=== PATIENT | male | born 1970 | race Caucasian/White ===

== ENCOUNTER 2020-06-15 01:21 | Inpatient (IN) ==
[2020-06-15] MEDS ORDERED: MORPHINE 4 MG/1 ML VIAL IV STA (01:34)
[2020-06-15] MEDS ORDERED: HEPARIN 5,000 UNIT/1 ML VIAL IV ONE (01:34)
[2020-06-15] MEDS ORDERED: ONDANSETRON 4 MG/2 ML VIAL IV STA (01:34)
[2020-06-15] MEDS ORDERED: ASPIRIN 325 MG TABLET PO STA (01:34)
[2020-06-15] MEDS ORDERED: DILTIAZEM 50 MG/10 ML VIAL IV STA (01:34)
[2020-06-15] MEDS ORDERED: NITROGLYCERIN 2% OINT 1 INCH/GM PACK TOP STA (01:34)
[2020-06-15] MEDS ORDERED: NITROGLYCERIN 2% OINT 1 INCH/GM PACK TOP ONE (01:35)
[2020-06-15] MEDS ORDERED: ONDANSETRON 4 MG/2 ML VIAL ONE (01:35)
[2020-06-15] MEDS ORDERED: ASPIRIN 325 MG TABLET ONE (01:36)
[2020-06-15] MEDS ORDERED: MORPHINE 4 MG/1 ML VIAL ONE (01:36)
[2020-06-15] MEDS ORDERED: HEPARIN 5,000 UNIT/1 ML VIAL ONE (01:36)
[2020-06-15 01:58] LABS: Basophils # 0.1 10*3/uL (0.0-0.2); Basophils % 0.8 % (0.0-0.8); Eosinophils # 0.2 10*3/uL (0.0-0.87); Eosinophils % 1.7 % (0.00-10.9); Hematocrit 46.7 VOL% (42.0-52.0); Hemoglobin 14.4 GM/DL (14.0-18.0); Immature Granulocytes % 0.7 %; Immature Granulocytes Absolute 0.09 #; Lymphocytes # 2.6 10*3/uL (1.4-4.0); Lymphocytes % 20.9 % (21.2-54.2); Mean Corpuscular HGB Conc 30.8 GM/DL (32-36); Mean Corpuscular Volume 94.5 FL (87-102); Mean Platelet Volume 9.8 FL (9.6-12.0); Monocytes % 7.5 % (1.7-12.7); Neutrophils % 68.4 % (38.7-73.9); Platelet Count 369 T/CUMM (130-400); Red Blood Count 4.94 MC/CUMM (3.8-5.5); Red Cell Distribution Width 17.4 % (9.3-17.3); White Blood Count 12.5 T/CUMM (4-12)
[2020-06-15] MEDS ORDERED: dilTIAZem Drip 125 MG/125 ML PREMIX IV SCH (02:00)
[2020-06-15] MEDS ORDERED: LIDOCAINE 1%/EPI INJ 20 ML VIAL ONE (02:01)
[2020-06-15] MEDS ORDERED: HEPARIN/NACL 0.9% 2 UNITS/ML 1,000 ML IV ONE (02:01)
[2020-06-15 02:11] LABS: PT Patient Result 11.1 SECS (9.8-11.9)
[2020-06-15] MEDS ORDERED: MORPHINE 10 MG/1 ML VIAL ONE (02:11)
[2020-06-15 02:17] LABS: Albumin 3.4 G/DL (3.4-5.0); Bilirubin,Total 1.1 MG/DL (0.2-1.0); Calcium 8.5 MG/DL (8.5-10.1); Osmolality,Calculated 274.8 MOS/KG (273-304); Total Protein 7.6 G/DL (6.4-8.3)
[2020-06-15] MEDS ORDERED: TIROFIBAN 5,000 MCG/100 ML PREMIX IV ONE (02:29)
[2020-06-15] MEDS ORDERED: TICAGRELOR 90 MG TABLET ONE (02:41)
[2020-06-15] MEDS ORDERED: FUROSEMIDE 40 MG/4 ML VIAL IV STA (03:20)
[2020-06-15] MEDS ORDERED: SODIUM CHLORIDE 0.45% 1,000 ML IV SCH (03:30)
[2020-06-15] MEDS: FUROSEMIDE 40 MG/4 ML VIAL IV SCH ×2 (04:23→08:20)
[2020-06-15 05:07] LABS: CKMB % 12.9 %; Osmolality,Calculated 276.7 MOS/KG (273-304); Risk Ratio 3.02; VLDL CHOLESTEROL 15.2 MG/DL
[2020-06-15 05:14] LABS: Troponin I 43.8 NG/ML (0.00-0.045)
[2020-06-15] MEDS ORDERED: DILTIAZEM 25 MG/5 ML VIAL IV ONE (05:22)
[2020-06-15] MEDS: carvediloL 6.25 MG TABLET PO SCH ×3 (05:40→17:22)
[2020-06-15] MEDS: LEVOTHYROXINE 100 MCG TABLET PO SCH (05:40)
[2020-06-15] MEDS: SACUBITRIL/VALSARTAN 49-51 MG TABLET PO SCH ×3 (05:41→20:38)
[2020-06-15] MEDS: HYDROmorphone 2 MG/1 ML VIAL IV PRN (07:15)
[2020-06-15] MEDS: dilTIAZem Drip 125 MG/125 ML PREMIX IV SCH (07:23)
[2020-06-15] MEDS ORDERED: FUROSEMIDE 40 MG/4 ML VIAL IV SCH ×2 (08:00→09:00)
[2020-06-15] MEDS: TICAGRELOR 90 MG TABLET PO SCH ×2 (08:20→20:37)
[2020-06-15] MEDS: APIXABAN 5 MG TABLET PO SCH ×2 (08:20→20:37)
[2020-06-15] MEDS: PANTOPRAZOLE 40 MG TABLET PO SCH (08:20)
[2020-06-15] MEDS ORDERED: LOSARTAN 25 MG TABLET PO SCH (09:00)
[2020-06-15] MEDS: CLORAZEPATE 3.75 MG TABLET PO PRN (17:29)
[2020-06-15] MEDS ORDERED: LORazepam 2 MG/1 ML VIAL IV ONE (20:10)
[2020-06-15] MEDS ORDERED: ZIPRASIDONE 20 MG/1 ML VIAL IM PRN (20:34)
[2020-06-15] MEDS ORDERED: SODIUM CHLORIDE 0.9% 250 ML IV ONE (20:37)
[2020-06-15] MEDS: SERTRALINE 25 MG TABLET PO SCH (20:37)
[2020-06-15] MEDS: ATORVASTATIN 80 MG TABLET PO SCH (20:37)
[2020-06-15 21:29] LABS: Thyroid Stimulating Hormone 1.5 uIU/ml (0.358-3.74)
[2020-06-16] MEDS: HYDROmorphone 2 MG/1 ML VIAL IV PRN ×3 (00:21→21:31)
[2020-06-16] MEDS: dilTIAZem Drip 125 MG/125 ML PREMIX IV SCH (05:35)
[2020-06-16] MEDS: LEVOTHYROXINE 100 MCG TABLET PO SCH (06:17)
[2020-06-16] MEDS: DOBUTamine 500 MG/250 ML PREMIX IV SCH ×2 (07:44→22:33)
[2020-06-16 08:00] LABS: Basophils # 0.1 10*3/uL (0.0-0.2); Basophils % 0.6 % (0.0-0.8); Eosinophils # 0.2 10*3/uL (0.0-0.87); Eosinophils % 1.9 % (0.00-10.9); Hematocrit 46.1 VOL% (42.0-52.0); Hemoglobin 14.5 GM/DL (14.0-18.0); Immature Granulocytes % 0.5 %; Immature Granulocytes Absolute 0.06 #; Lymphocytes # 2.6 10*3/uL (1.4-4.0); Mean Corpuscular HGB Conc 31.5 GM/DL (32-36); Mean Corpuscular Volume 93.5 FL (87-102); Mean Platelet Volume 9.5 FL (9.6-12.0); Monocytes % 11.4 % (1.7-12.7); Neutrophils % 61.6 % (38.7-73.9); Platelet Count 355 T/CUMM (130-400); Red Blood Count 4.93 MC/CUMM (3.8-5.5); Red Cell Distribution Width 16.9 % (9.3-17.3); White Blood Count 10.9 T/CUMM (4-12)
[2020-06-16 08:11] LABS: Calcium 7.6 MG/DL (8.5-10.1); Osmolality,Calculated 269.2 MOS/KG (273-304)
[2020-06-16] MEDS: PANTOPRAZOLE 40 MG TABLET PO SCH (09:25)
[2020-06-16] MEDS: TICAGRELOR 90 MG TABLET PO SCH ×2 (09:25→21:25)
[2020-06-16] MEDS: carvediloL 6.25 MG TABLET PO SCH ×2 (09:25→16:13)
[2020-06-16] MEDS: SACUBITRIL/VALSARTAN 49-51 MG TABLET PO SCH ×2 (09:25→21:25)
[2020-06-16] MEDS: APIXABAN 5 MG TABLET PO SCH ×2 (09:25→21:25)
[2020-06-16] MEDS: CLORAZEPATE 3.75 MG TABLET PO PRN (12:39)
[2020-06-16] MEDS: FUROSEMIDE 40 MG/4 ML VIAL IV SCH (15:52)
[2020-06-16] MEDS: ATORVASTATIN 80 MG TABLET PO SCH (21:26)
[2020-06-16] MEDS: SERTRALINE 25 MG TABLET PO SCH (21:26)
[2020-06-17 03:31] LABS: Basophils # 0.1 10*3/uL (0.0-0.2); Basophils % 0.6 % (0.0-0.8); Eosinophils # 0.3 10*3/uL (0.0-0.87); Eosinophils % 2.9 % (0.00-10.9); Hematocrit 43.5 VOL% (42.0-52.0); Hemoglobin 14.1 GM/DL (14.0-18.0); Immature Granulocytes % 0.5 %; Immature Granulocytes Absolute 0.05 #; Lymphocytes # 2.3 10*3/uL (1.4-4.0); Lymphocytes % 23.5 % (21.2-54.2); Mean Corpuscular HGB Conc 32.4 GM/DL (32-36); Mean Corpuscular Volume 90.8 FL (87-102); Mean Platelet Volume 9.4 FL (9.6-12.0); Monocytes % 9.3 % (1.7-12.7); Neutrophils % 63.2 % (38.7-73.9); Platelet Count 326 T/CUMM (130-400); Red Blood Count 4.79 MC/CUMM (3.8-5.5); Red Cell Distribution Width 16.4 % (9.3-17.3); White Blood Count 9.6 T/CUMM (4-12)
[2020-06-17 03:56] LABS: Calcium 7.6 MG/DL (8.5-10.1); Osmolality,Calculated 266.4 MOS/KG (273-304)
[2020-06-17] MEDS: HYDROmorphone 2 MG/1 ML VIAL IV PRN ×2 (05:40→17:40)
[2020-06-17] MEDS: LEVOTHYROXINE 100 MCG TABLET PO SCH (05:54)
[2020-06-17] MEDS: dilTIAZem Drip 125 MG/125 ML PREMIX IV SCH (07:11)
[2020-06-17] MEDS: carvediloL 6.25 MG TABLET PO SCH ×3 (08:53→23:38)
[2020-06-17] MEDS: FUROSEMIDE 40 MG/4 ML VIAL IV SCH ×2 (08:53→16:39)
[2020-06-17] MEDS: APIXABAN 5 MG TABLET PO SCH ×2 (08:54→20:10)
[2020-06-17] MEDS: PANTOPRAZOLE 40 MG TABLET PO SCH (08:54)
[2020-06-17] MEDS: SACUBITRIL/VALSARTAN 49-51 MG TABLET PO SCH ×2 (08:54→20:13)
[2020-06-17] MEDS: TICAGRELOR 90 MG TABLET PO SCH ×2 (08:54→20:09)
[2020-06-17] MEDS: CLORAZEPATE 3.75 MG TABLET PO PRN ×2 (13:33→20:10)
[2020-06-17] MEDS: DOBUTamine 500 MG/250 ML PREMIX IV SCH ×2 (14:02→15:32)
[2020-06-17] MEDS: SERTRALINE 25 MG TABLET PO SCH (20:09)
[2020-06-17] MEDS: ATORVASTATIN 80 MG TABLET PO SCH (20:09)
[2020-06-18 05:24] LABS: Basophils # 0.1 10*3/uL (0.0-0.2); Basophils % 0.6 % (0.0-0.8); Eosinophils # 0.2 10*3/uL (0.0-0.87); Eosinophils % 2.5 % (0.00-10.9); Hematocrit 43.9 VOL% (42.0-52.0); Hemoglobin 14.3 GM/DL (14.0-18.0); Immature Granulocytes % 0.5 %; Immature Granulocytes Absolute 0.05 #; Lymphocytes % 21.9 % (21.2-54.2); Mean Corpuscular HGB Conc 32.6 GM/DL (32-36); Mean Corpuscular Volume 88.3 FL (87-102); Mean Platelet Volume 9.3 FL (9.6-12.0); Monocytes % 11.1 % (1.7-12.7); Neutrophils % 63.4 % (38.7-73.9); Platelet Count 339 T/CUMM (130-400); Red Blood Count 4.97 MC/CUMM (3.8-5.5); Red Cell Distribution Width 16.4 % (9.3-17.3); White Blood Count 9.2 T/CUMM (4-12)
[2020-06-18 06:03] LABS: Albumin 2.2 G/DL (3.4-5.0); Bilirubin,Total 1.6 MG/DL (0.2-1.0); Calcium 7.8 MG/DL (8.5-10.1); Osmolality,Calculated 266.2 MOS/KG (273-304); Total Protein 5.8 G/DL (6.4-8.3)
[2020-06-18] MEDS: DOBUTamine 500 MG/250 ML PREMIX IV SCH ×2 (06:49→22:55)
[2020-06-18] MEDS: dilTIAZem Drip 125 MG/125 ML PREMIX IV SCH (06:49)
[2020-06-18] MEDS: LEVOTHYROXINE 100 MCG TABLET PO SCH (07:01)
[2020-06-18] MEDS: carvediloL 6.25 MG TABLET PO SCH ×3 (07:01→17:00)
[2020-06-18] MEDS: FUROSEMIDE 40 MG/4 ML VIAL IV SCH ×2 (10:17→16:32)
[2020-06-18] MEDS: TICAGRELOR 90 MG TABLET PO SCH ×2 (10:18→20:24)
[2020-06-18] MEDS: APIXABAN 5 MG TABLET PO SCH ×2 (10:18→20:24)
[2020-06-18] MEDS: PANTOPRAZOLE 40 MG TABLET PO SCH (10:20)
[2020-06-18] MEDS: SACUBITRIL/VALSARTAN 49-51 MG TABLET PO SCH ×2 (10:22→20:25)
[2020-06-18] MEDS: GABAPENTIN 100 MG CAPSULE PO SCH ×3 (14:11→20:24)
[2020-06-18] MEDS: ATORVASTATIN 80 MG TABLET PO SCH (20:24)
[2020-06-18] MEDS: SERTRALINE 25 MG TABLET PO SCH (20:24)
[2020-06-19] MEDS: carvediloL 6.25 MG TABLET PO SCH ×5 (00:10→23:40)
[2020-06-19 04:13] LABS: Basophils # 0.1 10*3/uL (0.0-0.2); Basophils % 0.8 % (0.0-0.8); Eosinophils # 0.3 10*3/uL (0.0-0.87); Hematocrit 46.1 VOL% (42.0-52.0); Hemoglobin 14.7 GM/DL (14.0-18.0); Immature Granulocytes % 0.6 %; Immature Granulocytes Absolute 0.05 #; Lymphocytes # 2.5 10*3/uL (1.4-4.0); Lymphocytes % 27.2 % (21.2-54.2); Mean Corpuscular HGB Conc 31.9 GM/DL (32-36); Mean Corpuscular Volume 91.8 FL (87-102); Mean Platelet Volume 8.9 FL (9.6-12.0); Monocytes % 11.9 % (1.7-12.7); Neutrophils % 56.5 % (38.7-73.9); Platelet Count 381 T/CUMM (130-400); Red Blood Count 5.02 MC/CUMM (3.8-5.5); Red Cell Distribution Width 16.8 % (9.3-17.3); White Blood Count 9.1 T/CUMM (4-12)
[2020-06-19] MEDS: dilTIAZem Drip 125 MG/125 ML PREMIX IV SCH (05:26)
[2020-06-19] MEDS: LEVOTHYROXINE 100 MCG TABLET PO SCH (06:10)
[2020-06-19 08:01] LABS: Calcium 8.2 MG/DL (8.5-10.1); Osmolality,Calculated 266.4 MOS/KG (273-304)
[2020-06-19] MEDS: FUROSEMIDE 40 MG/4 ML VIAL IV SCH ×2 (08:50→15:38)
[2020-06-19] MEDS: SACUBITRIL/VALSARTAN 49-51 MG TABLET PO SCH ×3 (08:51→21:08)
[2020-06-19] MEDS: PANTOPRAZOLE 40 MG TABLET PO SCH (08:51)
[2020-06-19] MEDS: APIXABAN 5 MG TABLET PO SCH ×2 (08:51→21:00)
[2020-06-19] MEDS: TICAGRELOR 90 MG TABLET PO SCH ×2 (08:51→21:00)
[2020-06-19] MEDS: GABAPENTIN 100 MG CAPSULE PO SCH ×3 (08:51→21:00)
[2020-06-19] MEDS ORDERED: DOBUTamine 500 MG/250 ML PREMIX IV SCH ×2 (15:21→19:00)
[2020-06-19] MEDS: DOBUTamine 500 MG/250 ML PREMIX IV SCH (15:27)
[2020-06-19] MEDS: SERTRALINE 25 MG TABLET PO SCH (21:00)
[2020-06-19] MEDS: ATORVASTATIN 80 MG TABLET PO SCH (21:01)
[2020-06-20 04:17] LABS: Basophils # 0.1 10*3/uL (0.0-0.2); Eosinophils # 0.3 10*3/uL (0.0-0.87); Eosinophils % 4.1 % (0.00-10.9); Hematocrit 42.5 VOL% (42.0-52.0); Hemoglobin 13.9 GM/DL (14.0-18.0); Immature Granulocytes % 0.8 %; Immature Granulocytes Absolute 0.06 #; Lymphocytes # 2.3 10*3/uL (1.4-4.0); Mean Corpuscular HGB Conc 32.7 GM/DL (32-36); Mean Corpuscular Volume 88.5 FL (87-102); Mean Platelet Volume 8.9 FL (9.6-12.0); Monocytes % 11.6 % (1.7-12.7); Neutrophils % 53.5 % (38.7-73.9); Platelet Count 367 T/CUMM (130-400); Red Cell Distribution Width 16.3 % (9.3-17.3); White Blood Count 7.9 T/CUMM (4-12)
[2020-06-20] MEDS: dilTIAZem Drip 125 MG/125 ML PREMIX IV SCH (05:02)
[2020-06-20 05:16] LABS: Calcium 8.1 MG/DL (8.5-10.1); Osmolality,Calculated 267.4 MOS/KG (273-304)
[2020-06-20] MEDS: LEVOTHYROXINE 100 MCG TABLET PO SCH (06:05)
[2020-06-20] MEDS: carvediloL 6.25 MG TABLET PO SCH ×2 (06:05→15:51)
[2020-06-20] MEDS ORDERED: POTASSIUM CHLORIDE 20 MEQ TABLET PO ONE (09:06)
[2020-06-20] MEDS: TICAGRELOR 90 MG TABLET PO SCH ×2 (09:30→20:58)
[2020-06-20] MEDS: GABAPENTIN 100 MG CAPSULE PO SCH ×3 (09:30→20:58)
[2020-06-20] MEDS: APIXABAN 5 MG TABLET PO SCH ×2 (09:30→20:58)
[2020-06-20] MEDS: PANTOPRAZOLE 40 MG TABLET PO SCH (09:30)
[2020-06-20] MEDS: FUROSEMIDE 40 MG TABLET PO SCH (09:31)
[2020-06-20] MEDS: SACUBITRIL/VALSARTAN 49-51 MG TABLET PO SCH ×2 (09:31→20:58)
[2020-06-20] MEDS: SPIRONOLACTONE 25 MG TABLET PO SCH (09:31)
[2020-06-20] MEDS: METOPROLOL TARTRATE 5 MG/5 ML VIAL IV SCH (20:41)
[2020-06-20] MEDS: ATORVASTATIN 80 MG TABLET PO SCH (20:58)
[2020-06-20] MEDS: SERTRALINE 25 MG TABLET PO SCH (20:59)
[2020-06-20] MEDS ORDERED: carvediloL 3.125 MG TABLET PO SCH (21:00)
[2020-06-21 05:47] LABS: Basophils # 0.1 10*3/uL (0.0-0.2); Basophils % 0.5 % (0.0-0.8); Eosinophils # 0.3 10*3/uL (0.0-0.87); Eosinophils % 3.2 % (0.00-10.9); Immature Granulocytes % 0.7 %; Immature Granulocytes Absolute 0.06 #; Lymphocytes # 1.8 10*3/uL (1.4-4.0); Mean Corpuscular HGB Conc 31.7 GM/DL (32-36); Mean Corpuscular Volume 91.9 FL (87-102); Mean Platelet Volume 9.4 FL (9.6-12.0); Monocytes % 8.4 % (1.7-12.7); Neutrophils % 67.2 % (38.7-73.9); Platelet Count 359 T/CUMM (130-400); Red Blood Count 4.46 MC/CUMM (3.8-5.5); Red Cell Distribution Width 16.2 % (9.3-17.3); White Blood Count 9.1 T/CUMM (4-12)
[2020-06-21 06:03] LABS: Calcium 8.1 MG/DL (8.5-10.1); Osmolality,Calculated 271.1 MOS/KG (273-304)
[2020-06-21] MEDS: LEVOTHYROXINE 100 MCG TABLET PO SCH (06:16)
[2020-06-21] MEDS: APIXABAN 5 MG TABLET PO SCH ×2 (08:28→21:12)
[2020-06-21] MEDS: carvediloL 6.25 MG TABLET PO SCH ×2 (08:28→21:12)
[2020-06-21] MEDS: GABAPENTIN 100 MG CAPSULE PO SCH ×3 (08:28→21:11)
[2020-06-21] MEDS: SPIRONOLACTONE 25 MG TABLET PO SCH (08:28)
[2020-06-21] MEDS: PANTOPRAZOLE 40 MG TABLET PO SCH (08:29)
[2020-06-21] MEDS: TICAGRELOR 90 MG TABLET PO SCH ×2 (08:29→21:12)
[2020-06-21] MEDS: FUROSEMIDE 40 MG TABLET PO SCH (08:29)
[2020-06-21] MEDS: METOPROLOL TARTRATE 5 MG/5 ML VIAL IV SCH ×2 (08:30→08:31)
[2020-06-21] MEDS ORDERED: LOSARTAN 25 MG TABLET PO SCH (21:00)
[2020-06-21] MEDS: SERTRALINE 25 MG TABLET PO SCH (21:11)
[2020-06-21] MEDS: ATORVASTATIN 80 MG TABLET PO SCH (21:13)
[2020-06-22 05:06] LABS: Basophils # 0.1 10*3/uL (0.0-0.2); Basophils % 0.6 % (0.0-0.8); Eosinophils # 0.3 10*3/uL (0.0-0.87); Eosinophils % 3.1 % (0.00-10.9); Hematocrit 39.9 VOL% (42.0-52.0); Immature Granulocytes % 0.4 %; Immature Granulocytes Absolute 0.04 #; Lymphocytes # 2.1 10*3/uL (1.4-4.0); Mean Corpuscular HGB Conc 32.6 GM/DL (32-36); Mean Corpuscular Volume 89.1 FL (87-102); Mean Platelet Volume 9.1 FL (9.6-12.0); Monocytes % 8.2 % (1.7-12.7); Neutrophils % 66.7 % (38.7-73.9); Platelet Count 368 T/CUMM (130-400); Red Blood Count 4.48 MC/CUMM (3.8-5.5); Red Cell Distribution Width 15.9 % (9.3-17.3)
[2020-06-22 05:13] LABS: Calcium 8.4 MG/DL (8.5-10.1); Osmolality,Calculated 269.2 MOS/KG (273-304)
[2020-06-22] MEDS: LEVOTHYROXINE 100 MCG TABLET PO SCH (06:00)
[2020-06-22 08:20] VITALS: BP 98/70
[2020-06-22] MEDS: TICAGRELOR 90 MG TABLET PO SCH (08:31)
[2020-06-22] MEDS: APIXABAN 5 MG TABLET PO SCH (08:31)
[2020-06-22] MEDS: FUROSEMIDE 40 MG TABLET PO SCH (08:31)
[2020-06-22] MEDS: carvediloL 6.25 MG TABLET PO SCH (08:31)
[2020-06-22] MEDS: GABAPENTIN 100 MG CAPSULE PO SCH (08:32)
[2020-06-22] MEDS: PANTOPRAZOLE 40 MG TABLET PO SCH (08:32)
[2020-06-22] MEDS: SPIRONOLACTONE 25 MG TABLET PO SCH (08:32)
== END 2020-06-22 11:02 | disposition home or self-care (01) | DRG 250 ==
LOC: N.ED 01:21 → N.ICU 02:00 → N.EDINP 02:48 → N.ICU 03:23 → N.TELES 06-20 16:21
PROVIDERS: ADMIT Internal Medicine Interventional Cardiology; ATTEND Internal Medicine Interventional Cardiology
PROC: CLCCHCL (ICD-10-PCS; 2020-06-15 02:15)

== ENCOUNTER 2020-06-29 12:29 | Inpatient (IN) ==
[2020-06-29] MEDS ORDERED: SODIUM CHLORIDE 0.9% 500 ML IV STA (13:07)
[2020-06-29 13:18] LABS: Basophils # 0.1 10*3/uL (0.0-0.2); Basophils % 1.2 % (0.0-0.8); Eosinophils # 0.3 10*3/uL (0.0-0.87); Eosinophils % 2.8 % (0.00-10.9); Hematocrit 43.8 VOL% (42.0-52.0); Hgb & Hct Comparison OK; Immature Granulocytes % 0.9 %; Immature Granulocytes Absolute 0.08 #; Lymphocytes # 1.9 10*3/uL (1.4-4.0); Lymphocytes % 20.3 % (21.2-54.2); Mean Corpuscular Hemoglobin 29 PG (27-34); Monocytes # 0.7 10*3/uL (0.11-0.8); Monocytes % 7.3 % (1.7-12.7); Neutrophils # 6.3 10*3/uL (1.4-7.4); Neutrophils % 67.5 % (38.7-73.9); Platelet Count 444 T/CUMM (130-400)
[2020-06-29 13:25] LABS: INR 1.3; PT Patient Result 13.4 SECS (9.8-11.9)
[2020-06-29 13:40] LABS: Albumin/Globulin Ratio 0.8 RATIO (1.1-2.2); Bilirubin,Total 0.7 MG/DL (0.2-1.0)
[2020-06-29] MEDS ORDERED: MAGNESIUM SULF RIDER 4 GM in PREMIX 1 EACH IV PRN (13:54)
[2020-06-29] MEDS ORDERED: MAGNESIUM SULF RIDER 2 GM in PREMIX 1 EACH IV PRN (13:54)
[2020-06-29] MEDS ORDERED: SODIUM CHLORIDE 0.9% 1,000 ML IV SCH (14:00)
[2020-06-29] MEDS ORDERED: ALBUTEROL 2.5 MG/3 ML NEB RESP TX PRN (14:47)
[2020-06-29] MEDS ORDERED: ACETAMINOPHEN 325 MG TABLET PO PRN (14:51)
[2020-06-29] MEDS ORDERED: SIMETHICONE CHEW 125 MG TABLET PO PRN (14:51)
[2020-06-29] MEDS ORDERED: PROMETHAZINE 25 MG TABLET PO PRN (14:51)
[2020-06-29] MEDS ORDERED: ALUMINUM/MAGNES/SIMETH MAX STR 30 ML UDCUP PO PRN (14:51)
[2020-06-29] MEDS ORDERED: diphenhydrAMINE CAP 25 MG CAPSULE PO PRN (14:51)
[2020-06-29] MEDS ORDERED: ONDANSETRON 4 MG/2 ML VIAL IV PRN (14:51)
[2020-06-29] MEDS ORDERED: guaiFENesin/DM ER 600-30 MG TABLET PO PRN (14:51)
[2020-06-29] MEDS ORDERED: SODIUM CHLORIDE 0.9% 250 ML IV ONE (15:06)
[2020-06-29 16:18] LABS: Hepatitis A Ab IgM Quant 0.19 Index; Hepatitis A Ab IgM Result Negative (Negative); Hepatitis B Core IgM Quant 0.15 Index; Hepatitis B Core IgM Result Negative (Negative); Hepatitis B Surface Ag Quant < 0.10 Index; Hepatitis B Surface Ag Result Negative (Negative); Hepatitis C Virus Ab Quant 0.06 Index; Hepatitis C Virus Ab Result Negative (Negative)
[2020-06-29] MEDS ORDERED: carvediloL 3.125 MG TABLET PO SCH (21:00)
[2020-06-29] MEDS ORDERED: carvediloL 6.25 MG TABLET PO SCH (21:00)
[2020-06-29] MEDS: METOPROLOL SUCCINATE XL 25 MG TABLET PO SCH (21:30)
[2020-06-29] MEDS: ZALEPLON 5 MG CAPSULE PO PRN (21:30)
[2020-06-29] MEDS: SERTRALINE 25 MG TABLET PO SCH (21:31)
[2020-06-29] MEDS: TICAGRELOR 90 MG TABLET PO SCH (21:31)
[2020-06-29] MEDS: ATORVASTATIN 80 MG TABLET PO SCH (21:31)
[2020-06-29] MEDS: APIXABAN 5 MG TABLET PO SCH (21:31)
[2020-06-29] MEDS: DOCUSATE SODIUM 100 MG CAPSULE PO SCH (21:32)
[2020-06-30 01:08] LABS: Barbiturates Screen,Urine Negative (Negative); Cannabinoid Screen,Urine Negative (Negative); Phencyclidine Screen,Urine Negative (Negative); Was Specimen Discarded? Yes
[2020-06-30 05:49] LABS: Basophils # 0.1 10*3/uL (0.0-0.2); Eosinophils # 0.3 10*3/uL (0.0-0.87); Eosinophils % 2.6 % (0.00-10.9); Hematocrit 41.1 VOL% (42.0-52.0); Hemoglobin 12.7 GM/DL (14.0-18.0); Hgb & Hct Comparison OK; Immature Granulocytes % 1.1 %; Immature Granulocytes Absolute 0.11 #; Lymphocytes # 3.6 10*3/uL (1.4-4.0); Lymphocytes % 35.7 % (21.2-54.2); Mean Corpuscular HGB Conc 30.9 GM/DL (32-36); Mean Corpuscular Hemoglobin 29 PG (27-34); Mean Corpuscular Volume 93.4 FL (87-102); Monocytes # 0.7 10*3/uL (0.11-0.8); Monocytes % 7.3 % (1.7-12.7); Neutrophils # 5.3 10*3/uL (1.4-7.4); Neutrophils % 52.3 % (38.7-73.9); Platelet Count 397 T/CUMM (130-400)
[2020-06-30 06:20] LABS: Alanine Aminotransferase 77 U/L (16-61); Alkaline Phosphatase 211 U/L (45-117); Aspartate Amino Transferase 50 U/L (0-37); Bilirubin,Direct < 0.100 MG/DL (0.0-0.20); Bilirubin,Indirect 0.9 MG/DL (0.0-1.0)
[2020-06-30 06:30] LABS: Blood Urea Nitrogen 23 MG/DL (7-18); Carbon Dioxide 24 MMOL/L (21-32); Chloride 105 MMOL/L (98-107); Creatine Kinase MB 2.2 NG/ML (0.5-3.6); Estimated Glom Filtration Rate 74 ML/MIN; Magnesium 2.1 MG/DL (1.8-2.4); Osmolality,Calculated 272.1 MOS/KG (273-304); Sodium 135 MMOL/L (136-145)
[2020-06-30 06:32] LABS: Troponin I 0.085 NG/ML (0.00-0.045)
[2020-06-30] MEDS ORDERED: FUROSEMIDE 40 MG TABLET PO SCH (09:00)
[2020-06-30] MEDS: METOPROLOL SUCCINATE XL 25 MG TABLET PO SCH (10:04)
[2020-06-30] MEDS: TICAGRELOR 90 MG TABLET PO SCH ×2 (10:04→22:05)
[2020-06-30] MEDS: APIXABAN 5 MG TABLET PO SCH ×2 (10:04→22:05)
[2020-06-30] MEDS: DOCUSATE SODIUM 100 MG CAPSULE PO SCH ×2 (10:05→22:06)
[2020-06-30] MEDS: LEVOTHYROXINE 100 MCG TABLET PO SCH (10:05)
[2020-06-30] MEDS ORDERED: LOSARTAN 25 MG TABLET PO SCH (12:46)
[2020-06-30] MEDS ORDERED: NITROGLYCERIN SL 0.4 MG TABLET SL ONE (16:32)
[2020-06-30 17:05] LABS: Creatine Kinase MB 2.4 NG/ML (0.5-3.6); Troponin I 0.065 NG/ML (0.00-0.045)
[2020-06-30] MEDS: SERTRALINE 25 MG TABLET PO SCH (22:05)
[2020-06-30] MEDS: ATORVASTATIN 80 MG TABLET PO SCH (22:06)
[2020-06-30] MEDS: ZALEPLON 5 MG CAPSULE PO PRN (22:25)
[2020-07-01] MEDS: NITROGLYCERIN SL 0.4 MG TABLET SL PRN (07:08)
[2020-07-01] MEDS ORDERED: ISOSORBIDE MONONITRATE 30 MG TABLET PO SCH ×2 (09:00→17:54)
[2020-07-01] MEDS: APIXABAN 5 MG TABLET PO SCH (09:44)
[2020-07-01] MEDS: METOPROLOL SUCCINATE XL 25 MG TABLET PO SCH (09:44)
[2020-07-01] MEDS: LEVOTHYROXINE 100 MCG TABLET PO SCH (09:44)
[2020-07-01] MEDS: TICAGRELOR 90 MG TABLET PO SCH ×2 (09:45→21:54)
[2020-07-01] MEDS: SPIRONOLACTONE 25 MG TABLET PO SCH (09:45)
[2020-07-01] MEDS: DOCUSATE SODIUM 100 MG CAPSULE PO SCH ×2 (09:45→21:54)
[2020-07-01] MEDS: ISOSORBIDE MONONITRATE 30 MG TABLET PO SCH (12:04)
[2020-07-01] MEDS ORDERED: NITROGLYCERIN SL 0.4 MG TABLET SL PRN (14:24)
[2020-07-01] MEDS: ATORVASTATIN 80 MG TABLET PO SCH (21:53)
[2020-07-01] MEDS: ZALEPLON 5 MG CAPSULE PO PRN (21:54)
[2020-07-01] MEDS: SERTRALINE 25 MG TABLET PO SCH (21:54)
[2020-07-01] MEDS: ENOXAPARIN 60 MG/0.6 ML SYRINGE SUBCUT SCH (21:55)
[2020-07-02] MEDS: NITROGLYCERIN SL 0.4 MG TABLET SL PRN ×2 (01:00→02:00)
[2020-07-02] MEDS ORDERED: NITROGLYCERIN 2% OINT 1 INCH/GM PACK TOP ONE (02:54)
[2020-07-02] MEDS ORDERED: ALPRAZolam 0.5 MG TABLET PO ONE (02:55)
[2020-07-02] MEDS ORDERED: MORPHINE 4 MG/1 ML VIAL IV ONE (02:55)
[2020-07-02] MEDS ORDERED: ASPIRIN 325 MG TABLET PO ONE (02:55)
[2020-07-02 03:43] LABS: Creatine Kinase MB 2.2 NG/ML (0.5-3.6); Troponin I 0.049 NG/ML (0.00-0.045)
[2020-07-02 06:54] LABS: Creatine Kinase MB 2.1 NG/ML (0.5-3.6)
[2020-07-02 06:55] LABS: Troponin I 0.048 NG/ML (0.00-0.045)
[2020-07-02 08:18] LABS: Creatine Kinase MB 1.9 NG/ML (0.5-3.6)
[2020-07-02 09:36] LABS: Anion Gap 9.4 MMOL/L (5.0-15.0); Magnesium 1.9 MG/DL (1.8-2.4); Osmolality,Calculated 273.8 MOS/KG (273-304); Potassium 4.4 MMOL/L (3.5-5.1)
[2020-07-02 09:46] LABS: Bilirubin,Direct 0.21 MG/DL (0.0-0.20); Bilirubin,Indirect 0.6 MG/DL (0.0-1.0); Bilirubin,Total 0.8 MG/DL (0.2-1.0)
[2020-07-02] MEDS: TICAGRELOR 90 MG TABLET PO SCH ×2 (09:46→21:12)
[2020-07-02] MEDS: LEVOTHYROXINE 100 MCG TABLET PO SCH (09:46)
[2020-07-02] MEDS: SPIRONOLACTONE 25 MG TABLET PO SCH (09:46)
[2020-07-02] MEDS: FUROSEMIDE 20 MG TABLET PO SCH (09:46)
[2020-07-02] MEDS: ISOSORBIDE MONONITRATE 30 MG TABLET PO SCH (09:47)
[2020-07-02] MEDS: DOCUSATE SODIUM 100 MG CAPSULE PO SCH ×2 (09:47→21:13)
[2020-07-02] MEDS: METOPROLOL SUCCINATE XL 25 MG TABLET PO SCH (09:47)
[2020-07-02] MEDS: ENOXAPARIN 60 MG/0.6 ML SYRINGE SUBCUT SCH (09:53)
[2020-07-02] MEDS: ASPIRIN EC 81 MG TABLET PO SCH (09:53)
[2020-07-02] MEDS ORDERED: POTASSIUM CHLORIDE RIDER 10 MEQ in PREMIX 1 EACH IV PRN (12:13)
[2020-07-02] MEDS ORDERED: DIAZEPAM 5 MG TABLET PO ONE (12:13)
[2020-07-02] MEDS ORDERED: diphenhydrAMINE CAP 25 MG CAPSULE PO ONE (12:13)
[2020-07-02] MEDS ORDERED: HEPARIN/NACL 0.9% 2 UNITS/ML 1,000 ML IV ONE (13:22)
[2020-07-02] MEDS ORDERED: LIDOCAINE 1% 20 ML VIAL ONE (13:22)
[2020-07-02] MEDS ORDERED: MIDAZOLAM 2 MG/2 ML VIAL ONE (13:48)
[2020-07-02] MEDS ORDERED: fentaNYL 100 MCG/2 ML VIAL ONE (13:49)
[2020-07-02] MEDS ORDERED: SODIUM CHLORIDE 0.9% 1,000 ML IV SCH (15:00)
[2020-07-02] MEDS: DIGOXIN 0.125 MG TABLET PO SCH (16:53)
[2020-07-02] MEDS: ZALEPLON 5 MG CAPSULE PO PRN (21:12)
[2020-07-02] MEDS: SERTRALINE 25 MG TABLET PO SCH (21:13)
[2020-07-02] MEDS: ATORVASTATIN 80 MG TABLET PO SCH (21:13)
[2020-07-03 05:38] LABS: Basophils # 0.1 10*3/uL (0.0-0.2); Basophils % 0.5 % (0.0-0.8); Eosinophils # 0.2 10*3/uL (0.0-0.87); Eosinophils % 2.5 % (0.00-10.9); Hematocrit 39.5 VOL% (42.0-52.0); Hemoglobin 12.6 GM/DL (14.0-18.0); Hgb & Hct Comparison OK; Immature Granulocytes % 0.6 %; Immature Granulocytes Absolute 0.06 #; Lymphocytes # 1.7 10*3/uL (1.4-4.0); Lymphocytes % 17.6 % (21.2-54.2); Mean Corpuscular HGB Conc 31.9 GM/DL (32-36); Mean Corpuscular Hemoglobin 29 PG (27-34); Monocytes # 0.8 10*3/uL (0.11-0.8); Monocytes % 8.1 % (1.7-12.7); Neutrophils # 6.8 10*3/uL (1.4-7.4); Neutrophils % 70.7 % (38.7-73.9); Platelet Count 310 T/CUMM (130-400)
[2020-07-03 05:59] LABS: Anion Gap 8.2 MMOL/L (5.0-15.0); Magnesium 1.9 MG/DL (1.8-2.4); Osmolality,Calculated 274.7 MOS/KG (273-304); Potassium 4.2 MMOL/L (3.5-5.1)
[2020-07-03] MEDS ORDERED: propofoL 200 MG/20 ML VIAL IV ONE (10:21)
[2020-07-03] MEDS ORDERED: ETOMIDATE 40 MG/20 ML VIAL IV ONE (10:21)
[2020-07-03] MEDS ORDERED: LIDOCAINE 2% 5 ML VIAL ONE (10:21)
[2020-07-03] MEDS ORDERED: GLUCAGON 1 MG VIAL IM PRN (10:56)
[2020-07-03] MEDS ORDERED: DEXTROSE 50% 25 GM/50 ML VIAL IV PRN (10:56)
[2020-07-03] MEDS: DOCUSATE SODIUM 100 MG CAPSULE PO SCH ×2 (12:58→20:48)
[2020-07-03] MEDS: TICAGRELOR 90 MG TABLET PO SCH ×2 (12:58→20:48)
[2020-07-03] MEDS: ISOSORBIDE MONONITRATE 30 MG TABLET PO SCH (12:59)
[2020-07-03] MEDS: DIGOXIN 0.125 MG TABLET PO SCH (12:59)
[2020-07-03] MEDS: SPIRONOLACTONE 25 MG TABLET PO SCH (12:59)
[2020-07-03] MEDS: METOPROLOL SUCCINATE XL 50 MG TABLET PO SCH (12:59)
[2020-07-03] MEDS: APIXABAN 5 MG TABLET PO SCH ×2 (12:59→20:47)
[2020-07-03] MEDS: FUROSEMIDE 20 MG TABLET PO SCH (12:59)
[2020-07-03] MEDS: LEVOTHYROXINE 100 MCG TABLET PO SCH (13:00)
[2020-07-03] MEDS: ASPIRIN EC 81 MG TABLET PO SCH (13:00)
[2020-07-03] MEDS: SACUBITRIL/VALSARTAN 49-51 MG TABLET PO SCH (20:47)
[2020-07-03] MEDS: SERTRALINE 25 MG TABLET PO SCH (20:47)
[2020-07-03] MEDS: ATORVASTATIN 80 MG TABLET PO SCH (20:48)
[2020-07-03] MEDS: ZALEPLON 5 MG CAPSULE PO PRN (20:51)
[2020-07-04 04:07] LABS: Basophils # 0.1 10*3/uL (0.0-0.2); Basophils % 0.7 % (0.0-0.8); Eosinophils # 0.2 10*3/uL (0.0-0.87); Eosinophils % 2.8 % (0.00-10.9); Hemoglobin 12.1 GM/DL (14.0-18.0); Hgb & Hct Comparison OK; Immature Granulocytes % 0.9 %; Immature Granulocytes Absolute 0.06 #; Lymphocytes # 0.9 10*3/uL (1.4-4.0); Mean Corpuscular HGB Conc 32.7 GM/DL (32-36); Mean Corpuscular Hemoglobin 29 PG (27-34); Mean Corpuscular Volume 89.2 FL (87-102); Monocytes # 0.9 10*3/uL (0.11-0.8); Monocytes % 12.8 % (1.7-12.7); Neutrophils # 4.8 10*3/uL (1.4-7.4); Neutrophils % 69.8 % (38.7-73.9); Platelet Count 293 T/CUMM (130-400)
[2020-07-04 05:05] LABS: Anion Gap 10.6 MMOL/L (5.0-15.0); Magnesium 1.7 MG/DL (1.8-2.4); Osmolality,Calculated 268.1 MOS/KG (273-304); Potassium 3.6 MMOL/L (3.5-5.1)
[2020-07-04] MEDS: LEVOTHYROXINE 100 MCG TABLET PO SCH (09:27)
[2020-07-04] MEDS: TICAGRELOR 90 MG TABLET PO SCH (09:27)
[2020-07-04] MEDS: DOCUSATE SODIUM 100 MG CAPSULE PO SCH (09:27)
[2020-07-04] MEDS: ISOSORBIDE MONONITRATE 30 MG TABLET PO SCH (09:27)
[2020-07-04] MEDS: METOPROLOL SUCCINATE XL 50 MG TABLET PO SCH (09:27)
[2020-07-04] MEDS: SACUBITRIL/VALSARTAN 49-51 MG TABLET PO SCH (09:27)
[2020-07-04] MEDS: FUROSEMIDE 20 MG TABLET PO SCH (09:28)
[2020-07-04] MEDS: APIXABAN 5 MG TABLET PO SCH (09:28)
[2020-07-04] MEDS: SPIRONOLACTONE 25 MG TABLET PO SCH (09:28)
[2020-07-04] MEDS: ASPIRIN EC 81 MG TABLET PO SCH (09:28)
[2020-07-04 11:57] VITALS: BP 101/57
[2020-07-04] MEDS: DIGOXIN 0.125 MG TABLET PO SCH (13:44)
== END 2020-07-04 13:50 | disposition home or self-care (01) ==
LOC: N.EDINP 12:29 → N.ED 12:29 → N.TELEN 14:34
PROVIDERS: ADMIT Internal Medicine Cardiovascular Disease; ATTEND Internal Medicine Cardiovascular Disease
PROC: CLCCHCL (ICD-10-PCS; 2020-07-02 14:15)